=== PATIENT | male | born 1955 | race Two or more races ===

== ENCOUNTER 2019-11-04 21:01 | Emergency (ER) | payer OTHER ==
[~2019-11-04] VITALS: Ht 180.3 cm; Wt 77.6 kg
[2019-11-04 21:57] LABS: Basophils # (auto) 0 uL; Basophils % (auto) 0.8 % (0.0-2.0); Eosinophils # (auto) 0.1 uL; Eosinophils % (auto) 2.5 % (0.0-7.0); Hematocrit 42.5 % (41.0-53.0); Hemoglobin 14.4 g/dL (13.5-17.5); Lymphocytes # (auto) 2.3 uL; Lymphocytes % (auto) 37.8 % (10.0-50.0); Mean Corpuscular Hemoglobin 28.7 pg (28.0-32.0); Mean Corpuscular Hgb Conc. 33.8 g/dL (32.0-36.0); Mean Corpuscular Volume 84.8 fL (80.0-100.0); Monocytes # (auto) 0.5 uL; Monocytes % (auto) 8.7 % (0.0-12.0); Neutrophils % (auto) 50.2 % (37.0-80.0); Platelet Count (auto) 199 10^3/uL (140-450); Red Blood Cells 5.02 10^6/uL (4.5-5.90); Red Cell Distribution Width 13.9 % (11.8-14.3)
[2019-11-04 22:11] LABS: INR 1.02 (0.9-1.15); Partial Thromboplastin Time 27.7 sec (23.64-32.05)
[2019-11-04 22:16] LABS: Albumin 3.5 g/dL (3.4-5.0); Calcium 8.3 mg/dL (8.5-10.1); Magnesium 1.9 mg/dL (1.6-2.6); Potassium 3.6 mmol/L (3.5-5.1)
[2019-11-04 22:19] LABS: Bilirubin, Total 0.4 mg/dL (0.2-1.0); Total Protein 7.9 g/dL (6.4-8.2)
[2019-11-05] MEDS ORDERED: DexAMETHasone SOD PHOS 10MG/1ML VIAL INJ IV ONE
[2019-11-05 00:29] LABS: Urine Bacteria NONE SEEN /hpf (None Seen); Urine Blood TRACE /uL (Negative); Urine Specific Gravity 1.019 (1.001-1.035); Urine WBC <1 /hpf (0 - 3)
[2019-11-05 00:57] VITALS: BP 151/89
== END 2019-11-04 23:19 | disposition short-term general hospital (02) ==
LOC: ER 21:06
DX: I63.9 Cerebral infarction, unspecified (principal); G51.0 Bell's palsy
CPT/HCPCS: 36415; 70450; 71046; 80053; 81001; 83735; 84443; 85025; 85610; 85730; 93005

== ENCOUNTER 2025-05-08 09:46 | Emergency (ER) | payer OTHER ==
[~2025-05-08] VITALS: Ht 180.3 cm; Wt 78.7 kg
[2025-05-08 09:50] VITALS: BP 157/78; PULSE 64; RESP 17; TEMP 97.7; O2SAT 97
--- NOTE | 2025-05-08 10:20 | ED.PDOC ---
Back pain HPI HPI Comments 70 M presents to the ER w/ prior MHx of CVA x5yrs, Unspecified Heart Arrhythmia and the c/c of lower back pain. Pt reports on having a sudden onset of right lumbosacral para spinal muscle of the back since wednesday night of 05/04/25 after getting out of work. 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 Pt states that the pain worsens when changing positions from sitting to standing. Tried OTC IBU with improvement Denies history of chronic steroid use or history of osteoporosis Denies history of cancer Denies fevers chills night sweats nausea vomiting unintentional weight loss Denies abdominal tearing pain Denies syncope Denies urinary changes or urinary incontinence Denies numbness tingling of the groin her inner thigh Denies previous back procedures or surgeries Chief Complaint: Back Pain Time Seen by MD: 10:00 Primary Care Provider: none Reviewed Notes: Nurses Notes, Medications, Allergies Allergies: Coded Allergies: NO KNOWN ALLERGIES (Unverified , 02/18/13) Home Meds Active Scripts Tizanidine Hydrochloride (TIZANIDINE HCL) 2 Mg Cap, 2 MG PO Q12HP PRN for 14 Days, #28 CAP 0 Refills Prov:MIKAYLA MACIAS NP 05/08/25 Information Source: Patient Timing: Days Duration: Since onset, Days Location of Back pain: (R) Lower back Severity: Moderate Prehospital treatment: None Quality: Aching Onset: Spontaneous History of: None Associated signs and symptoms: None Past Medical History PAST MEDICAL HISTORY: CVA Past Medical History (Other): unspecified heart arrhythmia Surgical History: Denies all surgeries Family History Family History: Reviewed,noncontributory to illness, Unknown, Family hx of heart maya Social History Smoker: Non-Smoker Alcohol: Rarely Drugs: Denies Drug Use Lives In: Home Constitutional: denies: chills, diaphoresis, fatigue, fever, malaise, sweats, weakness, others EENTM: denies: blurred vision, double vision, ear bleeding, ear discharge, ear drainage, ear pain, ear ringing, eye pain, eye redness, hearing loss, mouth pain, mouth swelling, nasal discharge, nose bleeding, nose congestion, nose pain, photophobia, tearing, throat pain, throat swelling, voice changes, others Respiratory: denies: cough, hemoptysis, orthopnea, SOB at rest, shortness of breath, SOB with excertion, stridor, wheezing, others Cardiovascular: denies: chest pain, dizzy spells, diaphoresis, Dyspnea on exertion, edema, irregular heart beat, left arm pain, lightheadedness, palpitations, PND, syncope, others Gastrointestinal: denies: abdomen distended, abdominal pain, blood streaked bowels, constipated, diarrhea, dysphagia, difficulty swallowing, hematemesis, me randolph, nausea, poor appetite, poor fluid intake, rectal bleeding, rectal pain, vomiting, others Genitourinary: denies: burning, dysuria, flank pain, frequency, hematuria, incontinence, penile discharge, penile sore, pain, testicle pain, testicle swelling, urgency, others Neurological: denies: dizziness, fainting, headache, left sided numbness, left sided weakness, numbness, paresthesia, pre-existing deficit, right sided numbness, right sided weakness, seizure, speech problems, tingling, tremors, weakness, others Musculoskeletal: reports: back pain; denies: gout, joint pain, joint swelling, muscle pain, muscle stiffness, neck pain, others Integumetry: denies: bruises, change in color, change in hair/nails, dryness, laceration, lesions, lumps, rash, wounds, others Allergic/Immunocompromised: denies: Difficulty Healing, Frequent Infections, Hives, Itching, others Hematologic/Lymphatic: denies: anemia, blood clots, easy bleeding, easy bruising, swollen glands, others Endocrine: denies: excessive hunger, excessive sweating, excessive thirst, excessive urination, flushing, intolerance to cold, intolerance to heat, unexplained weight gain, unexplained weight loss, others Psychiatric: denies: anxiety, bipolar disorder, depression, hopeless, panic disorder, schizophrenia, sleepless, suicidal, others All Other Systems: Reviewed and Negative Physical Exam General Appearance: No Apparent Distress, Normal HEENT: Normal ENT Inspection, Pharynx Normal, TMs Normal Neck: Full Range of Motion, Non-Tender, Normal, Normal Inspection Respiratory: Chest Non-Tender, Lungs Clear, No Accessory Muscle Use, No Respiratory Distress, Normal Breath Sounds Cardiovascular: No Murmur, No Gallop, Regular Rate/Rhythm Breast Exam: Deferred Gastrointestinal: No Organomegaly, Non Tender, No Pulsatile Mass, Normal Bowel Sounds, Soft Genitalia: Deferred Pelvic: Deferred Rectal: Deferred Extremities: No calf tenderness, Normal capillary refill, Normal inspection, Normal range of motion, Non-tender, No pedal edema Musculoskeletal : Location: Right Extremity Location: Back (right lumbosacral para spinal muscle) Apperance: Normal, Tenderness: Moderate Neurologic: Alert, shipping checker II-XII nml as Tested, No Motor Deficits, Normal Affect, Normal Mood, No Sensory Deficits Cerebellar Function: Normal Reflexes: Normal Skin: Dry, Normal Color, Warm Lymphatic: No Adenopathy Was a procedure done? Was a procedure done?: No Back Pain Differential Dx Differential Diagnosis: Musculoskeletal Pain, Urinary Tract Infection, Other X-Ray, Labs, Meds, VS Vital Signs Date Time Temp Pulse Resp B/P (MAP) Pulse Ox O2 Delivery O2 Flow Rate FiO2 05/08/25 09:50 64 17 97 Room Air* 0 21 05/08/25 09:50 97.7 64 17 157/78 (104) 97 97.7 05/08/25 09:50 97.7 64 17 157/78 (104) 97 97.7 Lab Test 05/08/25 10:16 05/08/25 10:00 Range/Units White Blood Count 6.1 4.4-10.8 10^3/uL Red Blood Count 5.27 4.5-5.90 10^6/uL Hemoglobin 15.7 13.5-17.5 g/dL Hematocrit 43.2 41.0-53.0 % Mean Corpuscular Volume 82.0 80.0-100.0 fL Mean Corpuscular Hemoglobin 29.7 28.0-32.0 pg Mean Corpuscular Hemoglobin Concent 36.2 H 32.0-36.0 g/dL Red Cell Distribution Width 14.0 11.8-14.3 % Platelet Count 187 140-450 10^3/uL Mean Platelet Volume 8.4 6.9-10.8 fL Neutrophils (%) (Auto) 61.5 37.0-80.0 % Lymphocytes (%) (Auto) 25.3 10.0-50.0 % Monocytes (%) (Auto) 9.0 0.0-12.0 % Eosinophils (%) (Auto) 3.6 0.0-7.0 % Basophils (%) (Auto) 0.6 0.0-2.0 % Neutrophils # (Auto) 3.8 1.6-8.6 10 ^3/uL Lymphocytes # (Auto) 1.6 0.4-5.4 10 ^3/uL Monocytes # (Auto) 0.5 0-1.3 10 ^3/uL Eosinophils # (Auto) 0.2 0-0.8 10 ^3/uL Basophils # (Auto) 0 0-0.2 10 ^3/uL Nucleated Red Blood Cells 0.0 % Sodium Level 141 136-145 mmol/L Potassium Level 3.7 3.5-5.1 mmol/L Chloride Level 105 98-107 mmol/L Carbon Dioxide Level 28 20-31 mmol/L Anion Gap 8 5-15 Blood Urea Nitrogen 15 9-23 mg/dL Creatinine 0.87 0.700-1.30 mg/dL Glomerular Filtration Rate Calc 93 >90 mL/min BUN/Creatinine Ratio 17.2 10.0-20.0 Serum Glucose 94 74-106 mg/dL Calcium Level 9.3 8.7-10.4 mg/dL Urine Color Light-yellow Yellow Urine Clarity Clear Clear Urine pH 5.5 5.0-9.0 Urine Specific [place] 1.020 1.001-1.035 Urine Protein Negative Negative Urine Ketones Negative Negative Urine Blood Trace H Negative /uL Urine Nitrite Negative Negative Urine Bilirubin Negative Negative Urine Urobilinogen Normal Negative mg/dL Urine Leukocyte Esterase Negative Negative /uL Urine RBC 3 0 - 3 /hpf Urine Microscopic WBC < 1 0-3 /HPF Urine Squamous Epithelial Cells None seen <5 /hpf Urine Bacteria None seen None Seen /hpf Urine Glucose Normal Normal mg/dL X-Ray, Labs, Meds, VS Comment 70M presents to the ER w/ prior MHx of CVA x5yrs, Unspecified Heart Arrhythmia and the c/c of lower back pain. Patient arrives alert and oriented, ABC's intact, afebrile, vital signs stable, saturating well in room air CBC was ordered to exclude anemia, blood loss, or infection. BMP was ordered to exclude electrolyte abnormalities, renal failure, dehydration, hyperglycemia Urinalysis was ordered to rule out UTI or hematuria. I considered cauda equina, spinal cord compression, vertebral malignancy/mets, acute spinal fracture, vertebral osteomyelitis, epidural abscess, infected or obstructed kidney stone, however this is less likely as the patient does not present with lower back pain red flags symptoms such as bowel or bladder dysfunction, saddle anesthesia, paresthesia, and without any history of malignancy or recent back trauma or spinal interventions. Presentation most consistent with nonemergent musculoskeletal etiology versus nonemergent disc herniation. ED workup: Defer imaging and lab work for outpatient follow up at this time Disposition: Discharge. Strict return precautions discussed with the patient with full understanding. Supportive care advised (rest, ice, heat, NSAIDs, stretching exercises) Massage muscles with cold pack or ice for 20 minutes 4 times per day. Usually most useful if there is swelling during the first 48 hours Heating pad on the most painful area for 20 minutes to relieve muscle spasm Sleep and the most comfortable sleeping position (usually on the side with knees bent) Light stretching, no strenuous activity, avoid frequent bending, avoid carrying heavy objects Discussed possible benefits of yoga and acupuncture Return precautions discussed including: Inability to walk/bear weight Paresthesia/weakness/leg pain Fecal/urinary incontinence Any worsening symptoms On reevaluation, patient had symptomatic improvement. Patient is stable for discharge at this time. External notes reviewed. Test results and diagnostic imaging interpreted. All diagnostic findings, discharge care, education and instructions provided Follow-up with PCP in 2 to 3 days Patient verbalized understanding and agreed to treatment plan Vital signs stable, afebrile, no acute distress noted Patient ambulatory with strong steady gait Advised to return precautions for any new or worsening symptoms, return to ER immediately for re-evaluation Patient is aware that the purpose of this visit was for an acute medical emergency requiring emergent stabilization. Chronic conditions, including malignancies have not been ruled out. Patient is instructed to follow up with PCP as directed and discharge instructions for continued care and workup. If unable to arrange follow-up, patient is to return to the emergency department for reassessment. Patient (parent or legal guardian if applicable) was given verbal and written discharge instructions and acknowledges understanding. Additional MDM Review of External, Non-ED records: External records reviewed. Discussion with independent historian (EMS, family) history obtained from the patient/parents (if applicable) at bedside Chronic conditions affecting care: None Social determinants of health affecting care: None Consideration of admission (observation or admission): I considered escalation of care to admission for this patient, however given the reassuring workup, the patient is safe for outpatient management. Discussion with the Radiology: No Tests considered but not performed: Considered plain films such as lumbar x-ray however imaging as symptoms have been present for less than four weeks and there is no indication for acute trauma no injury. Patient did not have any midline TTP and there was no bony step-offs on palpation Prescription medication considered but not given: Time of 1ST Reevaluation: 10:30 Reevaluation 1ST: Unchanged Patient Education/Counseling: Diagnosis, Treatment, Prognosis Family Education/Counseling: No Family Present SEPSIS Sepsis Screen Vital Signs Date Time Temp Pulse Resp B/P (MAP) Pulse Ox O2 Delivery O2 Flow Rate FiO2 05/08/25 09:50 64 17 97 Room Air* 0 21 05/08/25 09:50 97.7 64 17 157/78 (104) 97 97.7 05/08/25 09:50 97.7 64 17 157/78 (104) 97 97.7 Laboratory Tests Test 05/08/25 10:16 White Blood Count 6.1 10^3/uL (4.4-10.8) Departure 1 Departure Time of Disposition: 11:33 Impression: Primary Impression: Back strain Qualified Codes: S39.012A - Strain of muscle, fascia and tendon of lower back, initial encounter Disposition: HOME / SELF CARE / HOMELESS Condition: Stable e-Prescriptions Tizanidine Hydrochloride (TIZANIDINE HCL) 2 Mg Cap 2 MG PO Q12HP PRN for 14 Days, #28 CAP 0 Refills Prov: MIKAYLA MACIAS NP 05/08/25 Critical Care Note Critical Care Time?: No Stability Stability form required: No Heart Score Heart Score: Heart Score Response (Comments) Value History N/A 0 EKG N/A 0 Age N/A 0 Risk Factors N/A 0 Troponin N/A 0 Total 0 I personally scribed for MIKAYLA MACIAS NP ([email or web address]) on 05/08/25 at 10:20. Electronically submitted by Jerrod Aragon ([email or web address]). MIKAYLA MACIAS NP May 08, 2025 10:20
[2025-05-08 10:24] LABS: Urine Protein, UAD Negative (Negative)
[2025-05-08 10:37] LABS: Hematocrit 43.2 % (41.0-53.0); Hemoglobin 15.7 g/dL (13.5-17.5); Mean Corpuscular Hemoglobin 29.7 pg (28.0-32.0); Mean Corpuscular Volume 82.0 fL (80.0-100.0); Nucleated Red Blood Cells % 0.0 %
[2025-05-08 10:41] LABS: Chloride 105 mmol/L (98-107); Potassium 3.7 mmol/L (3.5-5.1); Sodium 141 mmol/L (136-145)
[2025-05-08 10:42] LABS: Anion Gap 8 (5-15); Carbon Dioxide 28 mmol/L (20-31)
[2025-05-08 10:43] LABS: Calcium 9.3 mg/dL (8.7-10.4)
[2025-05-08 10:47] LABS: BUN/Creatinine Ratio 17.2 (10.0-20.0); Blood Urea Nitrogen 15 mg/dL (9-23); Glucose 94 mg/dL (74-106)
[2025-05-08] MEDS ORDERED: TIZA2CAP7 PO (11:35)
== END 2025-05-08 11:45 | disposition home or self-care (01) ==
LOC: ER 09:46
DX: S39.012A Strain of muscle, fascia and tendon of lower back, initial encounter (principal); F10.90 Alcohol use, unspecified, uncomplicated; Z86.73 Personal history of transient ischemic attack (TIA), and cerebral infarction without residual deficits; Z79.899 Other long term (current) drug therapy; X50.0XXA Overexertion from strenuous movement or load, initial encounter; Y93.89 Activity, other specified; Y92.89 Other specified places as the place of occurrence of the external cause; Y99.0 Civilian activity done for income or pay; Y90.9 Presence of alcohol in blood, level not specified
CPT/HCPCS: 36415; 80048; 81001; 85025

== ENCOUNTER 2025-05-10 09:17 | Inpatient (IN) | payer OTHER ==
[~2025-05-10] VITALS: Ht 180.3 cm; Wt 80.0 kg
[~2025-05-10 09:17] MED LIST: TIZA2CAP7 PO
--- NOTE | 2025-05-10 09:32 | ED.PDOC ---
General HPI Comments This is a 70 year old male presenting to the ED with chief complaint of flank pain. Patient reports that he was seen 2 days ago for similar pain to his right flank, being prescribed muscle relaxant with no relief. Patient relays that his pain has worsened since then. Patient states that his pain is currently an 8/10. Patient notes he is unable to see his PCP until May. Patient denies any dysuria, hematuria, abdominal pain, fever, chills, or N/V/D. Chief Complaint: Flank Pain Time Seen by MD: 09:31 Primary Care Provider: KARSON Reviewed notes: Nurses Notes, Medications, Allergies Allergies: Coded Allergies: NO KNOWN ALLERGIES (Unverified , 02/18/13) Home Meds Active Scripts Tizanidine Hydrochloride (TIZANIDINE HCL) 2 Mg Cap, 2 MG PO Q12HP PRN for 14 Days, #28 CAP 0 Refills Prov:MIKAYLA MACIAS NP 05/08/25 Information Source: Patient Mode of Arrival: Ambulatory Severity: Moderate Timing: Days Duration: Since onset Prehospital treatment: None Onset: Spontaneous History of: None Location: (R) Flank Past Medical History PAST MEDICAL HISTORY: CVA Surgical History: Denies all surgeries Family History Family History: Reviewed,noncontributory to illness, Unknown, Family hx of heart maya Social History Smoker: Non-Smoker Alcohol: Rarely Drugs: Denies Drug Use Lives In: Home Constitutional: denies: chills, diaphoresis, fatigue, fever, malaise, sweats, weakness, others EENTM: denies: blurred vision, double vision, ear bleeding, ear discharge, ear drainage, ear pain, ear ringing, eye pain, eye redness, hearing loss, mouth pain, mouth swelling, nasal discharge, nose bleeding, nose congestion, nose pain, photophobia, tearing, throat pain, throat swelling, voice changes, others Respiratory: denies: cough, hemoptysis, orthopnea, SOB at rest, shortness of breath, SOB with excertion, stridor, wheezing, others Cardiovascular: denies: chest pain, dizzy spells, diaphoresis, Dyspnea on exertion, edema, irregular heart beat, left arm pain, lightheadedness, palpitations, PND, syncope, others Gastrointestinal: denies: abdomen distended, abdominal pain, blood streaked bowels, constipated, diarrhea, dysphagia, difficulty swallowing, hematemesis, melena, nausea, poor appetite, poor fluid intake, rectal bleeding, rectal pain, vomiting, others Genitourinary: reports: flank pain; denies: burning, dysuria, frequency, hemat uria, incontinence, penile discharge, penile sore, pain, testicle pain, testicle swelling, urgency, others Neurological: denies: dizziness, fainting, headache, left sided numbness, left sided weakness, numbness, paresthesia, pre-existing deficit, right sided numbness, right sided weakness, seizure, speech problems, tingling, tremors, weakness, others Musculoskeletal: denies: back pain, gout, joint pain, joint swelling, muscle pain, muscle stiffness, neck pain, others Integumetry: denies: bruises, change in color, change in hair/nails, dryness, laceration, lesions, lumps, rash, wounds, others Allergic/Immunocompromised: denies: Difficulty Healing, Frequent Infections, Hives, Itching, others Hematologic/Lymphatic: denies: anemia, blood clots, easy bleeding, easy bruising, swollen glands, others Endocrine: denies: excessive hunger, excessive sweating, excessive thirst, excessive urination, flushing, intolerance to cold, intolerance to heat, unexplained weight gain, unexplained weight loss, others Psychiatric: denies: anxiety, bipolar disorder, depression, hopeless, panic disorder, schizophrenia, sleepless, suicidal, others All Other Systems: Reviewed and Negative Physical Exam General Appearance: Moderate Distress, Normal HEENT: Normal ENT Inspection, Pharynx Normal, TMs Normal Neck: Full Range of Motion, Non-Tender, Normal, Normal Inspection Respiratory: Chest Non-Tender, Lungs Clear, No Accessory Muscle Use, No Respiratory Distress, Normal Breath Sounds Cardiovascular: No Edema, No JVD, No Murmur, No Gallop, Normal Peripheral Pulses, Regular Rate/Rhythm Breast Exam: Deferred Gastrointestinal: No Organomegaly, Non Tender, No Pulsatile Mass, Normal Bowel Sounds, Soft Genitalia: Deferred Pelvic: Deferred Rectal: Deferred Extremities: No calf tenderness, Normal capillary refill, Normal inspection, Normal range of motion, Non-tender, No pedal edema Musculoskeletal : Apperance: Normal 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 Was a procedure done?: No Differential Diagnosis Kidney stone (Female): Musculoskeletal pain, Urinary obstruction, Urolithiasis Kidney stone (Male): Urolithiasis, Urinary tract infection, Other (Musc uloskeletal pain) X-Ray, Labs, Meds, VS Vital Signs Date Time Temp Pulse Resp B/P (MAP) Pulse Ox O2 Delivery O2 Flow Rate FiO2 05/10/25 16:00 97.8 56 16 114/52 (72) 95 97.8 05/10/25 13:05 Room Air* 0 21 05/10/25 13:05 98.1 52 16 136/70 (92) 95 98.1 05/10/25 12:38 70 18 97 Room Air* 0 21 05/10/25 09:52 98.1 62 18 158/71 (100) 96 98.1 05/10/25 09:52 62 18 96 Room Air 05/10/25 09:25 97.7 67 17 159/94 (115) 99 97.7 Lab Test 05/10/25 09:41 05/10/25 09:24 Range/Units White Blood Count 6.4 4.4-10.8 10^3/uL Red Blood Count 5.24 4.5-5.90 10^6/uL Hemoglobin 15.0 13.5-17.5 g/dL Hematocrit 42.8 41.0-53.0 % Mean Corpuscular Volume 81.7 80.0-100.0 fL Mean Corpuscular Hemoglobin 28.6 28.0-32.0 pg Mean Corpuscular Hemoglobin Concent 35.0 32.0-36.0 g/dL Red Cell Distribution Width 14.0 11.8-14.3 % Platelet Count 190 140-450 10^3/uL Mean Platelet Volume 8.3 6.9-10.8 fL Neutrophils (%) (Auto) 63.8 37.0-80.0 % Lymphocytes (%) (Auto) 24.5 10.0-50.0 % Monocytes (%) (Auto) 7.7 0.0-12.0 % Eosinophils (%) (Auto) 3.2 0.0-7.0 % Basophils (%) (Auto) 0.8 0.0-2.0 % Neutrophils # (Auto) 4.1 1.6-8.6 10 ^3/uL Lymphocytes # (Auto) 1.6 0.4-5.4 10 ^3/uL Monocytes # (Auto) 0.5 0-1.3 10 ^3/uL Eosinophils # (Auto) 0.2 0-0.8 10 ^3/uL Basophils # (Auto) 0.1 0-0.2 10 ^3/uL Nucleated Red Blood Cells 0.0 % Sodium Level 140 136-145 mmol/L Potassium Level 3.9 3.5-5.1 mmol/L Chloride Level 106 98-107 mmol/L Carbon Dioxide Level 29 20-31 mmol/L Anion Gap 5 5-15 Blood Urea Nitrogen 12 9-23 mg/dL Creatinine 0.87 0.700-1.30 mg/dL Glomerular Filtration Rate Calc 93 >90 mL/min BUN/Creatinine Ratio 13.8 10.0-20.0 Serum Glucose 100 74-106 mg/dL Hemoglobin A1c Pending Calcium Level 9.6 8.7-10.4 mg/dL Urine Color Light-yellow Yellow Urine Clarity Clear Clear Urine pH 5.5 5.0-9.0 Urine Specific [place] 1.014 1.001-1.035 Urine Protein Negative Negative Urine Ketones Negative Negative Urine Blood Trace H Negative /uL Urine Nitrite Negative Negative Urine Bilirubin Negative Negative Urine Urobilinogen Normal Negative mg/dL Urine Leukocyte Esterase Negative Negative /uL Urine RBC 1 0 - 3 /hpf Urine Microscopic WBC 1 0-3 /HPF Urine Squamous Epithelial Cells None seen <5 /hpf Urine Bacteria None seen None Seen /hpf Urine Glucose Normal Normal mg/dL Current Medications Medications (Trade) Dose Ordered Sig/Lion Route Start Time Stop Time Status Last Admin Sodium Chloride 1,000 ml @ 1,000 mls/hr Q1H ONCE IV 05/10/25 09:30 05/10/25 10:29 DC 05/10/25 09:57 Ketorolac Tromethamine (Toradol Injection) 30 mg ONCE ONCE IV 05/10/25 09:30 05/10/25 09:31 DC 05/10/25 10:01 CT Abd/Pel: FINDINGS: Lung bases: Lung bases are clear. Liver: Grossly unremarkable in its noncontrast enhanced appearance. No abnormal density or focal lesion identified. Biliary: No calcified gallstones or biliary ductal dilatation. Spleen: Unremarkable. Pancreas: Grossly unremarkable in its noncontrast enhanced appearance. Adrenal glands: Unremarkable. No mass. Kidneys: No hydronephrosis. No renal or ureteral calculi. Aorta/Vascular: No aneurysm or significant calcification. Retroperitoneum: No mass or lymphadenopathy. Bowel/mesentery: Nonspecific nondilated fluid-filled small bowel loops. Findings may be seen with ileus or enteritis in the appropriate clinical setting. No small bowel obstruction. Appendix is visualized and appears unremarkable. There is increased density in the central mesentery with multiple small subcentimeter mesenteric lymph nodes, may be seen with mesenteric panniculitis. Scattered colonic diverticula without adjacent inflammatory changes to suggest diverticulitis. Pelvic organs: Prostate is enlarged, with mild impression on the bladder base. Coarse central calcifications in the prostate gland. Bladder: Grossly unremarkable. Abdominal wall: Small fat containing direct left inguinal hernia. Bones: No acute fracture or suspicious intraosseous lesion. Mild grade 1 anterolisthesis of L4 on L5. IMPRESSION: 1. No hydronephrosis and no renal or ureteral calculi. 2. 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 3. Scattered colonic diverticula without adjacent inflammatory changes to suggest diverticulitis. 4. Small fat containing left inguinal hernia. 5. Additional findings as described above. Patient alert pain Complaining of flank pain. CT of the abdomen reviewed does show painnculitis. Vitals stable. Answering questions. Continues to have pain. Was given pain medication. Explained to the patient that he will be admitted for pain control. Continue monitoring. Images Reviewed?: Images reviewed and evaluated by me Time of 1ST Reevaluation: 10:29 Reevaluation 1ST: Unchanged Patient Education/Counseling: Diagnosis, Treatment Family Education/Counseling: No Family Present Additional Information Previous visits reviewed: 05/08/25 for back strain The following tests were ordered, and results were reviewed by me: UA, CBC, BMP, CT Abd/Pel Additional Information was gathered from interviewing the following independent historians: None I reviewed and agreed with the following test results read by other providers: CT Abd/Pel I discussed treatment and results with medical personnel and: patient Comprehensive systems review obtained and negative except for what is stated in the HPI. SEPSIS Sepsis Screen Date sepsis recognized/suspect: May 10, 2025 Time Sepsis recognized/suspect: 925 Recent Procedure: No On Antibiotic Therapy: No Respiratory Rate >20: No Heart Rate >90: No Temp<36 C (96.8 F) or >38.3 C: No SBP <90 or MAP <65 mmHG: No New Acute Mental Status Change: No Is the patient on CPAP, BIPAP,: No Physician Orders Ct Ab Pel Wo Con-No Oral Or Iv (05/10/25 09:30) Saline Lock (05/10/25 09:34) Lumbar Spine 3 View (05/10/25 16:00) Vital Signs Date Time Temp Pulse Resp B/P (MAP) Pulse Ox O2 Delivery O2 Flow Rate FiO2 05/10/25 16:00 97.8 56 16 114/52 (72) 95 97.8 05/10/25 13:05 Room Air* 0 21 05/10/25 13:05 98.1 52 16 136/70 (92) 95 98.1 05/10/25 12:38 70 18 97 Room Air* 0 21 05/10/25 09:52 98.1 62 18 158/71 (100) 96 98.1 05/10/25 09:52 62 18 96 Room Air 05/10/25 09:25 97.7 67 17 159/94 (115) 99 97.7 Laboratory Tests Test 05/10/25 09:41 White Blood Count 6.4 10^3/uL (4.4-10.8) Medications Medications Dose Ordered Sig/Lion Route Start Time Stop Time Status Last Admin Dose Admin Ketorolac Tromethamine 30 mg ONCE ONCE IV 05/10/25 09:30 05/10/25 09:31 DC 05/10/25 10:01 Sodium Chloride 1,000 ml @ 1,000 mls/hr Q1H ONCE IV 05/10/25 09:30 05/10/25 10:29 DC 05/10/25 09:57 Departure 1 Departure Time of Disposition: 17:54 Impression: Primary Impression: Acute abdominal pain Additional Impression: Panniculitis Disposition: ADMITTED INPATIENT Admit to: Med Surg Condition: Guarded Critical Care Note Critical Care Time?: No Stability Stability form required: No Heart Score Heart Score: Heart Score Response (Comments) Value History N/A 0 EKG N/A 0 Age N/A 0 Risk Factors N/A 0 Troponin N/A 0 Total 0 I personally scribed for JULIETTE CARVALHO MD ([email or web address]) on 05/10/25 at 09:32. Electronically submitted by Luc Parisi ([email or web address]). I personally scribed for JULIETTE CARVALHO MD ([email or web address]) on 05/10/25 at 10:45. Electronically submitted by Luc Parisi ([email or web address]). JULIETTE CARVALHO MD May 10, 2025 09:32
[2025-05-10] MEDS: SODIUM CHLORIDE 0.9% 1,000 ML IV ONE (09:57)
[2025-05-10] MEDS: KETOROLAC TROMETH 30 MG/ML 1ML VIAL IV ONE (10:01)
[2025-05-10 10:04] LABS: Hematocrit 42.8 % (41.0-53.0); Hemoglobin 15.0 g/dL (13.5-17.5); Mean Corpuscular Hemoglobin 28.6 pg (28.0-32.0); Mean Corpuscular Volume 81.7 fL (80.0-100.0); Nucleated Red Blood Cells % 0.0 %
[2025-05-10 10:10] LABS: Anion Gap 5 (5-15); Carbon Dioxide 29 mmol/L (20-31); Chloride 106 mmol/L (98-107); Potassium 3.9 mmol/L (3.5-5.1); Sodium 140 mmol/L (136-145)
[2025-05-10 10:11] LABS: Calcium 9.6 mg/dL (8.7-10.4)
[2025-05-10 10:16] LABS: BUN/Creatinine Ratio 13.8 (10.0-20.0); Blood Urea Nitrogen 12 mg/dL (9-23); Glucose 100 mg/dL (74-106)
[2025-05-10 10:16] LABS: Urine Protein, UAD Negative (Negative)
--- NOTE | 2025-05-10 10:20 | DVH ---
CLINICAL INFORMATION: Renal stone. Abdominal pain. TECHNIQUE: Axial CT images of the abdomen and pelvis were obtained without IV contrast. Coronal and s agittal reformatted images were obtained, reviewed, and stored. Evaluation of the parenchymal organs is limited without IV contrast. Evaluation of the bowel and mesentery is limited without oral contras t. All CT scans at this medical facility are performed using dose modulation techniques as appropriat e to a performed exam including the following: Automated exposure control was utilized; adjustment of the MA and/or KV according to patient size; and use of iterative reconstruction technique. CTDIvol = 7.78 mGy DLP = 475.24 mGy-cm COMPARISON: None FINDINGS: Lung bases: Lung bases are clear. Liver: Grossly unremarkable in its noncontrast enhanced appearance. No abnormal density or focal lesi on identified. Biliary: No calcified gallstones or biliary ductal dilatation. Spleen: Unremarkable. Pancreas: Grossly unremarkable in its noncontrast enhanced appearance. Adrenal glands: Unremarkable. No mass. Kidneys: No hydronephrosis. No renal or ureteral calculi. Aorta/Vascular: No aneurysm or significant calcification. Retroperitoneum: No mass or lymphadenopathy. Bowel/mesentery: Nonspecific nondilated fluid-filled small bowel loops. Findings may be seen with ile us or enteritis in the appropriate clinical setting. No small bowel obstruction. Appendix is visualiz ed and appears unremarkable. There is increased density in the central mesentery with multiple small subcentimeter mesenteric lymph nodes, may be seen with mesenteric panniculitis. Scattered colonic di verticula without adjacent inflammatory changes to suggest diverticulitis. Pelvic organs: Prostate is enlarged, with mild impression on the bladder base. Coarse central calcifi cations in the prostate gland. Bladder: Grossly unremarkable. Abdominal wall: Small fat containing direct left inguinal hernia. Bones: No acute fracture or suspicious intraosseous lesion. Mild grade 1 anterolisthesis of L4 on L5. IMPRESSION: 1. No hydronephrosis and no renal or ureteral calculi. 2. 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 3. Scattered colonic diverticula without adjacent inflammatory changes to suggest diverticulitis. 4. Small fat containing left inguinal hernia. 5. Additional findings as described above.
[2025-05-10 12:38] VITALS: PULSE 70; RESP 18; O2SAT 97
[2025-05-10] MEDS ORDERED: ONDANSETRON HCL 4 MG/2 ML VIAL IV PRN (16:15)
[2025-05-10] MEDS ORDERED: ACETAMINOPHEN 325 MG TAB PO PRN (16:15)
[2025-05-10] MEDS ORDERED: MORPHINE SULFATE INJ 2 MG/ml SYRG IV PRN (16:15)
--- NOTE | 2025-05-10 16:16 | DVHHP2 ---
History of Present Illness Reason for Visit: Intractable right flank pain History of Present Illness Omari Bingham is a 70-year-old male with past medical history of CVA with no weakness, palpitations, PSVT, and right brain tumor in 2019 who presents to the ED with right flank pain radiating to his left lower quadrant of the abdomen. Patient states that there is only discomfort currently 4/10 pressure-like and constant. He states that medications make it better. His Anat and [id number] is currently at the bedside. Patient also endorses that he drinks daily 2 L of Coca-Cola. Patient reports that there are no triggering factors to his pain. 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 He states that he does not use a back brace for support. 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 Past Medical History PSVT Palpitations Right brain tumor in 2019 patient reports Past Surgical History: None Family History: None Smoke: No ALCOHOL: none Drugs: None Lives: with Family Domestic Violence: Neg Review of Systems Gastrointestinal: Abdominal Pain Musculoskeletal: other (Intractable right flank pain radiating to his left lower quadrant of abdomen) Allergies: Coded Allergies: NO KNOWN ALLERGIES (Unverified , 02/18/13) Exam Vital Signs Vital Signs Date Time Temp Pulse Resp B/P (MAP) Pulse Ox O2 Delivery O2 Flow Rate FiO2 05/10/25 13:05 Room Air* 0 21 05/10/25 13:05 98.1 52 16 136/70 (92) 95 98.1 General Appearance: Alert, Oriented X3, Cooperative, No acute distress HEENT: Atraumatic, PERRLA, EOMI, Mucous membr. moist/pink Respiratory: Clear to auscultation, Normal air movement Cardiovascular: Normal S1, Normal S2 Abdominal: Normal bowel sounds, Soft Extremities: No clubbing, No cyanosis, No edema, Normal pulses, No tenderness/swelling Skin: No significant lesion Neuro: Normal speech, Strength at 5/5 X4 ext, Normal tone, Sensation intact Psych/Mental Status: Mental status NL, Mood NL Labs/Xrays Labs Test 05/10/25 09:41 05/10/25 09:24 Range/Units White Blood Count 6.4 4.4-10.8 10^3/uL Red Blood Count 5.24 4.5-5.90 10^6/uL Hemoglobin 15.0 13.5-17.5 g/dL Hematocrit 42.8 41.0-53.0 % Mean Corpuscular Volume 81.7 80.0-100.0 fL Mean Corpuscular Hemoglobin 28.6 28.0-32.0 pg Mean Corpuscular Hemoglobin Concent 35.0 32.0-36.0 g/dL Red Cell Distribution Width 14.0 11.8-14.3 % Platelet Count 190 140-450 10^3/uL Mean Platelet Volume 8.3 6.9-10.8 fL Neutrophils (%) (Auto) 63.8 37.0-80.0 % Lymphocytes (%) (Auto) 24.5 10.0-50.0 % Monocytes (%) (Auto) 7.7 0.0-12.0 % Eosinophils (%) (Auto) 3.2 0.0-7.0 % Basophils (%) (Auto) 0.8 0.0-2.0 % Neutrophils # (Auto) 4.1 1.6-8.6 10 ^3/uL Lymphocytes # (Auto) 1.6 0.4-5.4 10 ^3/uL Monocytes # (Auto) 0.5 0-1.3 10 ^3/uL Eosinophils # (Auto) 0.2 0-0.8 10 ^3/uL Basophils # (Auto) 0.1 0-0.2 10 ^3/uL Nucleated Red Blood Cells 0.0 % Sodium Level 140 136-145 mmol/L Potassium Level 3.9 3.5-5.1 mmol/L Chloride Level 106 98-107 mmol/L Carbon Dioxide Level 29 20-31 mmol/L Anion Gap 5 5-15 Blood Urea Nitrogen 12 9-23 mg/dL Creatinine 0.87 0.700-1.30 mg/dL Glomerular Filtration Rate Calc 93 >90 mL/min BUN/Creatinine Ratio 13.8 10.0-20.0 Serum Glucose 100 74-106 mg/dL Calcium Level 9.6 8.7-10.4 mg/dL Urine Color Light-yellow Yellow Urine Clarity Clear Clear Urine pH 5.5 5.0-9.0 Urine Specific [place] 1.014 1.001-1.035 Urine Protein Negative Negative Urine Ketones Negative Negative Urine Blood Trace H Negative /uL Urine Nitrite Negative Negative Urine Bilirubin Negative Negative Urine Urobilinogen Normal Negative mg/dL Urine Leukocyte Esterase Negative Negative /uL Urine RBC 1 0 - 3 /hpf Urine Microscopic WBC 1 0-3 /HPF Urine Squamous Epithelial Cells None seen <5 /hpf Urine Bacteria None seen None Seen /hpf Urine Glucose Normal Normal mg/dL CLINICAL INFORMATION: Renal stone. Abdominal pain. TECHNIQUE: Axial CT images of the abdomen and pelvis were obtained without IV contrast. Coronal and sagittal reformatted images were obtained, reviewed, and stored. Evaluation of the parenchymal organs is limited without IV contrast. Evaluation of the bowel and mesentery is limited without oral contrast. All CT scans at this medical facility are performed using dose modulation techniques as appropriate to a performed exam including the following: Automated exposure control was utilized; adjustment of the MA and/or KV according to patient size; and use of iterative reconstruction technique. CTDIvol = 7.78 mGy DLP = 475.24 mGy-cm COMPARISON: None FINDINGS: Lung bases: Lung bases are clear. Liver: Grossly unremarkable in its noncontrast enhanced appearance. No abnormal density or focal lesion identified. Biliary: No calcified gallstones or biliary ductal dilatation. Spleen: Unremarkable. Pancreas: Grossly unremarkable in its noncontrast enhanced appearance. Adrenal glands: Unremarkable. No mass. Kidneys: No hydronephrosis. No renal or ureteral calculi. Aorta/Vascular: No aneurysm or significant calcification. Retroperitoneum: No mass or lymphadenopathy. Bowel/mesentery: Nonspecific nondilated fluid-filled small bowel loops. Findings may be seen with ileus or enteritis in the appropriate clinical setting. No small bowel obstruction. Appendix is visualized and appears unremarkable. There is increased density in the central mesentery with multiple small subcentimeter mesenteric lymph nodes, may be seen with mesenteric panniculitis. Scattered colonic diverticula without adjacent inflammatory changes to suggest diverticulitis. Pelvic organs: Prostate is enlarged, with mild impression on the bladder base. Coarse central calcifications in the prostate gland. Bladder: Grossly unremarkable. Abdominal wall: Small fat containing direct left inguinal hernia. Bones: No acute fracture or suspicious intraosseous lesion. Mild grade 1 anterolisthesis of L4 on L5. IMPRESSION: 1. No hydronephrosis and no renal or ureteral calculi. 2. 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 3. Scattered colonic diverticula without adjacent inflammatory changes to suggest diverticulitis. 4. Small fat containing left inguinal hernia. CLINICAL INDICATION: back pain TECHNIQUE: 2 radiographic views of the lumbar spine were obtained. Comparison: None FINDINGS/IMPRESSION: There is anterior wedge deformity of T12 of unknown chronicity, likely chronic. MRI would be helpful to determine chronicity. Multilevel lsyg-he-uinfaltr degenerative changes of the lower thoracic and lumbar spine. Small amount of fecal material within the visualized colon. SEPSIS Sepsis Screen Date sepsis recognized/suspect: May 10, 2025 Time Sepsis recognized/suspect: 925 Recent Procedure: No On Antibiotic Therapy: No Respiratory Rate >20: No Heart Rate >90: No Temp<36 C (96.8 F) or >38.3 C: No SBP <90 or MAP <65 mmHG: No New Acute Mental Status Change: No Is the patient on CPAP, BIPAP,: No Physician Orders Ct Ab Pel Wo Con-No Oral Or Iv (05/10/25 09:30) Saline Lock (05/10/25 09:34) Lumbar Spine 3 View (05/10/25 16:00) Admit (05/10/25 16:02) Allergies (05/10/25 16:02) Code Status (05/10/25 16:02) 0.9% Ns 1000 Ml (05/10/25 16:15) Hydrocodone-Acet 5/325mg Tab ([place] 5/32 (05/10/25 16:15) Ondansetron Hcl (Zofran) (05/10/25 16:15) Complete Blood Count (05/11/25 04:00) Comprehensive Metabolic Panel (05/11/25 04:00) Npo (Nothing By Mouth) Diet (05/10/25 Dinner) Acetaminophen Tablet (Tylenol Tablet) (05/10/25 16:15) Morphine Sulfate Injection (05/10/25 16:15) Sequential Compression Device (05/10/25 ) Zosyn Extended Infusion (05/10/25 22:00) Vital Signs Date Time Temp Pulse Resp B/P (MAP) Pulse Ox O2 Delivery O2 Flow Rate FiO2 05/10/25 13:05 Room Air* 0 21 05/10/25 13:05 98.1 52 16 136/70 (92) 95 98.1 05/10/25 12:38 70 18 97 Room Air* 0 21 05/10/25 09:52 98.1 62 18 158/71 (100) 96 98.1 05/10/25 09:52 62 18 96 Room Air 05/10/25 09:25 97.7 67 17 159/94 (115) 99 97.7 Laboratory Tests Test 05/10/25 09:41 White Blood Count 6.4 10^3/uL (4.4-10.8) Medications Medications Dose Ordered Sig/Lion Route Start Time Stop Time Status Last Admin Dose Admin Ketorolac Tromethamine 30 mg ONCE ONCE IV 05/10/25 09:30 05/10/25 09:31 DC 05/10/25 10:01 30 MG Sodium Chloride 1,000 ml @ 1,000 mls/hr Q1H ONCE IV 05/10/25 09:30 05/10/25 10:29 DC 05/10/25 09:57 1,000 MLS/HR Assessment/Plan Assessment/Plan Assessment Intractable right flank pain radiating to left lower quadrant of abdomen likely due to diverticulitis versus mesenteric panniculitis Anterior wedge deformity of T12 on imaging Left inguinal hernia History of palpitations History of PSVT ? Possible history of right brain tumor in 2019 per patient reports History of CVA with no weakness reported Plan Admit to med surge Antiemetics Pain management IV antibiotics-Zosyn UA NS [address] abdomen and pelvis noted Last echo on 02/19/2013 EF 47% X-ray lumbar spine MRI lumbar spine ordered IV fluids NPO Per patient he does not take any home medications DVT prophylaxis-not indicated patient ambulating PUD prophylaxis-not indicated no history of GERD or GI bleed Discussed plan of care with patient, spouse, patient's [id number], and nurse [id number] Preventive counseling healthy eating habits, physical activity, and regular checkups Plan discussed with: Patient, Spouse, Daughter My Orders Orders - JAY JAY 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 Procedure Category Date Status Time Lumbar Spine 3 View XY 05/10/25 Logged 16:00 Admit ADMIT 05/10/25 Transmitted 16:02 Allergies TIEN 05/10/25 Transmitted 16:02 Code Status CODE 05/10/25 Transmitted 16:02 0.9% Ns 1000 Ml PHA 05/10/25 Transmitted 16:15 Hydrocodone-Acet PHA 05/10/25 Transmitted 5/325mg Tab ([place] 16:15 Ondansetron Hcl PHA 05/10/25 Transmitted (Zofran) 16:15 Complete Blood Count LAB 05/11/25 Verified 04:00 Comprehensive LAB 05/11/25 Verified Metabolic Panel 04:00 Npo (Nothing By DIET 05/10/25 Transmitted Mouth) Diet Dinner Acetaminophen Tablet PHA 05/10/25 Transmitted (Tylenol Tablet) 16:15 Morphine Sulfate PHA 05/10/25 Transmitted Injection 16:15 Sequential TIEN 05/10/25 Transmitted Compression Device Zosyn Extended PHA 05/10/25 Transmitted Infusion 22:00 Date of Service: May 10, 2025 Billing Provider: JAY JAY MERCADO Common Visit Codes: 14932-[id number] INP/OBS CARE (HIGH) Secondary Visit Codes: [id number] COUNSELING IND JAY JAY MERCADO May 10, 2025 16:16
[2025-05-10] MEDS: SODIUM CHLORIDE 0.9% 1,000 ML IV SCH (16:26)
--- NOTE | 2025-05-10 16:37 | DVH ---
CLINICAL INDICATION: back pain TECHNIQUE: 2 radiographic views of the lumbar spine were obtained. Comparison: None FINDINGS/IMPRESSION: There is anterior wedge deformity of T12 of unknown chronicity, likely chronic. MRI would be helpful to determine chronicity. Multilevel ogbx-uj-dmzmjvua degenerative changes of the lower thoracic and l umbar spine. Small amount of fecal material within the visualized colon.
[2025-05-10 17:00] VITALS: BP 138/68; PULSE 54; RESP 18; TEMP 97.5; O2SAT 98
[2025-05-10] MEDS: POLYETHYLENE GLYCOL 17 GM PWDR PO SCH (17:00)
[2025-05-10 17:47] VITALS: BP 138/68; PULSE 54; RESP 18; TEMP 97.5; O2SAT 95
[2025-05-10 20:00] VITALS: PULSE 64; RESP 16; O2SAT 96
[2025-05-10 21:00] VITALS: BP 139/81; PULSE 48; RESP 16; TEMP 98; O2SAT 97
[2025-05-10] MEDS ORDERED: PIPERACILLIN-TAZOB 3.375GM 100 ML IV SCH (22:00)
[2025-05-10] MEDS: SENNA 8.6 MG TAB PO SCH (22:23)
[2025-05-10] MEDS: PIPERACILLIN-TAZOB 3.375GM 100 ML IV SCH (22:23)
[2025-05-11] VITALS (8 sets, daily range): BP systolic 122–137; BP diastolic 63–84; PULSE 55–71; RESP 16–18; TEMP 97.4–98.3; O2SAT 96–98
[2025-05-11 06:45] LABS: Hematocrit 41.1 % (41.0-53.0); Hemoglobin 14.3 g/dL (13.5-17.5); Mean Corpuscular Hemoglobin 28.7 pg (28.0-32.0); Mean Corpuscular Volume 82.3 fL (80.0-100.0); Nucleated Red Blood Cells % 0.0 %
[2025-05-11 06:52] LABS: Alanine Aminotransferase 25 U/L (7-40); Alkaline Phosphatase 61 U/L (46-116)
[2025-05-11 06:53] LABS: Albumin 3.7 g/dL (3.2-4.8); Anion Gap 8 (5-15); BUN/Creatinine Ratio 13.8 (10.0-20.0); Bilirubin, Total 0.9 mg/dL (0.2-1.0); Blood Urea Nitrogen 12 mg/dL (9-23); Calcium 8.7 mg/dL (8.7-10.4); Carbon Dioxide 26 mmol/L (20-31); Chloride 108 mmol/L (98-107); Glucose 97 mg/dL (74-106); Potassium 3.9 mmol/L (3.5-5.1); Sodium 142 mmol/L (136-145); Total Protein 6.4 g/dL (5.7-8.2)
--- NOTE | 2025-05-11 10:40 | DVH ---
PROCEDURE: MRI LUMBAR SPINE WO CONTRAST INDICATION: anterior wedge deformity of T12 of unknown chronicity Exam Date: 05/11/2025 08:41 AM COMPARISON: None TECHNIQUE: MRI lumbar spine without intravenous contrast. FINDINGS: Grade 1 anterolisthesis of L4 on L5. Mild chronic loss of vertebral body height T12. No acute corrie dolores fracture. There are degenerative endplate changes including modic endplate changes with anterio r and lateral osteophytes throughout the lumbar spine. The visualized distal spinal cord and conus me dullaris are within normal limits. The conus medullaris appears to terminate within normal limits. The visualized retroperitoneal and paraspinal soft tissues are unremarkable. The following axial levels are detailed below: T12-L1: There is a mild circumferential disc bulge. No significant central canal or neuroforaminal s tenosis. L1-L2: Unremarkable. L2-L3: There is a moderate circumferential disc bulge complicated by facet arthropathy associated w ith mild to moderate bilateral neuroforaminal stenosis. No significant central canal stenosis. L3-L4: There is a moderate circumferential disc bulge complicated by facet arthropathy associated w ith mild to moderate bilateral neuroforaminal stenosis. No significant central canal stenosis. L4-L5: There is a moderate circumferential disc bulge complicated by facet arthropathy associated w ith mild to moderate bilateral neuroforaminal stenosis. No significant central canal stenosis. L5-S1: There is a moderate circumferential disc bulge complicated by facet arthropathy associated wi th mild to moderate left neuroforaminal stenosis. No significant central canal stenosis. IMPRESSION: 1. Multilevel degenerative disease. Grade 1 anterolisthesis of L4 on L5. No significant central canal stenosis. Neural foraminal stenosis as above. Mild chronic loss of vertebral body height T12. No ac charlie compression fracture. HS:Y
--- NOTE | 2025-05-11 12:16 | DVHPN2 ---
Subjective The patient seen and examined at bedside. Complains of parvin pain. Reviewed: Care Plan, H&P, Labs, Medications, Previous Orders, Radiology Changes from previous H/P or p: No Changes Gastrointestinal: Abdominal Pain Musculoskeletal: other (Intractable right flank pain radiating to his left lower quadrant of abdomen) Objective Vitals Vital Signs Date Time Temp Pulse Resp B/P (MAP) Pulse Ox O2 Delivery O2 Flow Rate FiO2 05/11/25 09:43 98.3 55 17 133/75 (94) 97 98.3 05/11/25 08:00 Room Air* 0 21 Intake/Output Intake and Output 05/11/25 07:00 Intake Total 1000 ml Balance 1000 ml Intake IV Total 1000 ml # Voids 3 # Bowel Movements 1 General Appearance: Alert, Oriented X3, Cooperative, No acute distress HEENT: Atraumatic, PERRLA, EOMI, Mucous membr. moist/pink Neck: Supple Cardiovascular: Regular rate, Normal S1, Normal S2, No murmurs, Gallops, Rubs Abdomen: Normal bowel sounds, Soft, No tenderness Neuro: Cranial nerves 3-12 NL Psych/Mental Status: Mental status NL Medications Current Medications Medications Dose Ordered Sig/Lion Route Start Time Stop Time Status Last Admin Dose Admin Sodium Chloride 1,000 ml @ 120 mls/hr Q8H20M IV 05/10/25 16:15 05/11/25 08:55 120 MLS/HR Acetaminophen/ Hydrocodone Bitart 1 tab Q4HP PRN PO 05/10/25 16:15 Ondansetron HCl 4 mg Q4HP PRN IV 05/10/25 16:15 Acetaminophen 650 mg Q6HP PRN PO 05/10/25 16:15 Morphine Sulfate 2 mg Q4HPRN PRN IV 05/10/25 16:15 Piperacillin Sod/ Tazobactam Sod 100 ml @ 25 mls/hr Q8HR IV 05/10/25 22:00 05/11/25 05:12 25 MLS/HR Piperacillin Sod/ Tazobactam Sod 100 ml @ 25 mls/hr Q8HR IV 05/10/25 22:00 UNV Polyethylene Glycol 17 gm DAILY PO 05/10/25 17:00 Sennosides 8.6 mg HS PO 05/10/25 22:00 05/10/25 22:23 8.6 MG Laboratory Results MRI lumbar: 1. Multilevel degenerative disease. Grade 1 anterolisthesis of L4 on L5. No significant central canal stenosis. Neural foraminal stenosis as above. Mild chronic loss of vertebral body height T12. No acute compression fracture. XRay lumbar: There is anterior wedge deformity of T12 of unknown chronicity, likely chronic. MRI would be helpful to determine chronicity. Multilevel bhng-vr-oeqjofhb degenerative changes of the lower thoracic and lumbar spine. Small amount of fecal material within the visualized colon. CT abdomen and pelvis: 1. No hydronephrosis and no renal or ureteral calculi. 2. 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 3. Scattered colonic diverticula without adjacent inflammatory changes to suggest diverticulitis. 4. Small fat containing left inguinal hernia. 5. Additional findings as described above. Laboratory Tests 05/11/25 05:58 Chemistry Test 05/11/25 05:58 Albumin 3.7 g/dL (3.2-4.8) Calcium Level 8.7 mg/dL (8.7-10.4) Total Protein 6.4 g/dL (5.7-8.2) LFT Test 05/11/25 05:58 Alanine Aminotransferase (ALT) 25 U/L (7-40) Alkaline Phosphatase 61 U/L (46-116) Aspartate Amino Transferase (AST) 24 U/L (13-40) Total Bilirubin 0.9 mg/dL (0.2-1.0) Urinalysis Test 05/10/25 09:24 Urine Color Light-yellow (Yellow) Urine Clarity Clear (Clear) Urine pH 5.5 (5.0-9.0) Urine Specific [place] 1.014 (1.001-1.035) Urine Protein Negative (Negative) Urine Ketones Negative (Negative) Urine Blood Trace /uL (Negative) H Urine Nitrite Negative (Negative) Urine Bilirubin Negative (Negative) Urine Urobilinogen Normal mg/dL (Negative) Urine Leukocyte Esterase Negative /uL (Negative) Urine RBC 1 /hpf (0 - 3) Urine Microscopic WBC 1 /HPF (0-3) Urine Squamous Epithelial Cells None seen /hpf (<5) Urine Bacteria None seen /hpf (None Seen) Urine Glucose Normal mg/dL (Normal) Labs and/or images reviewed: Labs reviewed by me, Image(s) reviewed by me Assessment/Plan Assessment/Plan Intractable right flank pain radiating to left lower quadrant of abdomen likely due to diverticulitis versus mesenteric panniculitis Anterior wedge deformity of T12 on imaging Left inguinal hernia History of palpitations History of PSVT ? Possible history of right brain tumor in 2019 per patient reports History of CVA with no weakness reported Continue current management. Will start diet to see if patient tolerate. Advice patient not carry heavy subject. 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 DW about the result of MRI with the anterior wedge deformity of T12, avoid carry heavy load. Discharge planning. Plan discussed with: Patient, Daughter Date of Service: May 11, 2025 Billing Provider: TANISHA JAVED MD Common Visit Codes: [id number] INP/OBS CARE(HIGH) TANISHA JAVED MD May 11, 2025 12:16
[2025-05-12 01:00] VITALS: BP 134/83; PULSE 55; RESP 18; TEMP 97.5; O2SAT 97
[2025-05-12 05:00] VITALS: BP 124/71; PULSE 55; RESP 18; TEMP 97.8; O2SAT 97
[2025-05-12 08:11] VITALS: RESP 18; O2SAT 97
[2025-05-12 09:00] VITALS: BP 122/62; PULSE 53; RESP 16; TEMP 98.2; O2SAT 97
[2025-05-12] MEDS: HYDROcodone-ACET 5/325MG TAB PO PRN (09:54)
--- NOTE | 2025-05-12 11:39 | DVHDS2 ---
Discharge Summary Date of Admission May 10, 2025 at 16:02 Date of Discharge: May 12, 2025 Admitting Diagnosis Intractable right flank pain radiating to left lower quadrant of abdomen likely due to diverticulitis versus mesenteric panniculitis Anterior wedge deformity of T12 on imaging Left inguinal hernia History of palpitations History of PSVT ? Possible history of right brain tumor in 2019 per patient reports History of CVA with no weakness reported Labs/Diagnostic Data: Laboratory Results Test 05/11/25 05:58 05/10/25 09:41 05/10/25 09:24 White Blood Count 6.1 10^3/uL (4.4-10.8) Red Blood Count 5.00 10^6/uL (4.5-5.90) Hemoglobin 14.3 g/dL (13.5-17.5) Hematocrit 41.1 % (41.0-53.0) Mean Corpuscular Volume 82.3 fL (80.0-100.0) Mean Corpuscular Hemoglobin 28.7 pg (28.0-32.0) Mean Corpuscular Hemoglobin Concent 34.8 g/dL (32.0-36.0) Red Cell Distribution Width 13.5 % (11.8-14.3) Platelet Count 181 10^3/uL (140-450) Mean Platelet Volume 8.5 fL (6.9-10.8) Neutrophils (%) (Auto) 67.0 % (37.0-80.0) Lymphocytes (%) (Auto) 21.0 % (10.0-50.0) Monocytes (%) (Auto) 7.6 % (0.0-12.0) Eosinophils (%) (Auto) 3.5 % (0.0-7.0) Basophils (%) (Auto) 0.9 % (0.0-2.0) Neutrophils # (Auto) 4.1 10 ^3/uL (1.6-8.6) Lymphocytes # (Auto) 1.3 10 ^3/uL (0.4-5.4) Monocytes # (Auto) 0.5 10 ^3/uL (0-1.3) Eosinophils # (Auto) 0.2 10 ^3/uL (0-0.8) Basophils # (Auto) 0.1 10 ^3/uL (0-0.2) Nucleated Red Blood Cells 0.0 % Sodium Level 142 mmol/L (136-145) Potassium Level 3.9 mmol/L (3.5-5.1) Chloride Level 108 mmol/L (98-107) Carbon Dioxide Level 26 mmol/L (20-31) Anion Gap 8 (5-15) Blood Urea Nitrogen 12 mg/dL (9-23) Creatinine 0.87 mg/dL (0.700-1.30) Glomerular Filtration Rate Calc 93 mL/min (>90) BUN/Creatinine Ratio 13.8 (10.0-20.0) Serum Glucose 97 mg/dL (74-106) Calcium Level 8.7 mg/dL (8.7-10.4) Total Bilirubin 0.9 mg/dL (0.2-1.0) Aspartate Amino Transferase (AST) 24 U/L (13-40) Alanine Aminotransferase (ALT) 25 U/L (7-40) Alkaline Phosphatase 61 U/L (46-116) Total Protein 6.4 g/dL (5.7-8.2) Albumin 3.7 g/dL (3.2-4.8) Hemoglobin A1c 5.7 % A1C (<5.7) Urine Color Light-yellow (Yellow) Urine Clarity Clear (Clear) Urine pH 5.5 (5.0-9.0) Urine Specific [place] 1.014 (1.001-1.035) Urine Protein Negative (Negative) Urine Ketones Negative (Negative) Urine Blood Trace /uL (Negative) Urine Nitrite Negative (Negative) Urine Bilirubin Negative (Negative) Urine Urobilinogen Normal mg/dL (Negative) Urine Leukocyte Esterase Negative /uL (Negative) Urine RBC 1 /hpf (0 - 3) Urine Microscopic WBC 1 /HPF (0-3) Urine Squamous Epithelial Cells None seen /hpf (<5) Urine Bacteria None seen /hpf (None Seen) Urine Glucose Normal mg/dL (Normal) Other Laboratory Tests 05/11/25 05:58 Brief Hx & Hospital Course: This is a 70 years old male with past medical history of CVA with no weakness, heart palpitation, SVT, right brain tumor 2019 came to emergency department because of right flank pain radiates to his left lower quadrant of the abdomen. The patient said is constant so he decided to come to hospital for further evaluation. Patient reports that there are no triggering factors to his pain. 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 He had to lipid and see how it is. He states that he does not use a back brace for support. CT abdomen and pelvis showed: No hydronephrosis and no renal or ureteral calculi. 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 Scattered colonic diverticula without adjacent inflammatory changes to suggest diverticulitis. Small fat containing left inguinal hernia. Subsequently, he had a MRI T and L spine done which show: Grade 1 anterolisthesis of L4 on L5. Mild chronic loss of vertebral body height T12. No acute compression fracture. There are degenerative endplate changes including modic endplate changes with anterior and lateral osteophytes throughout the lumbar spine. The visualized distal spinal cord and conus medullaris are within normal limits. The conus medullaris appears to terminate within normal limits. The visualized retroperitoneal and paraspinal soft tissues are unremarkable.The following axial levels are detailed below:T12-L1: There is a mild circumferential disc bulge. No significant central canal or neuroforaminal stenosis. L1-L2: Unremarkable.L2-L3: There is a moderate circumferential disc bulge complicated by facet arthropathy associated with mild to moderate bilateral neuroforaminal stenosis. No significant central canal stenosis. L3-L4: There is a moderate circumferential disc bulge complicated by facet arthropathy associated with mild to moderate bilateral neuroforaminal stenosis. No significant central canal stenosis. L4-L5: There is a moderate circumferential disc bulge complicated by facet arthropathy associated with mild to moderate bilateral neuroforaminal stenosis. No significant central canal stenosis. L5-S1: There is a moderate circumferential disc bulge complicated by facet arthropathy associated with mild to moderate left neuroforaminal stenosis. No significant central canal stenosis. His pain is controlled. The patient also was started on IV antibiotic. I am going to discharge him home today. Advised him to work light without carry heavy objects. Advised him to have a colonoscopy done as outpatient. For up with primary care physician 1-2 weeks. Follow up with spine surgeon if he continuing to have pain. Physical exam: HEENT: Normocephalic atraumatic pupils equal react to light and accommodation. Extraocular muscles intact, conjunctiva pink, oropharynx moist, no thrush, no exudate. Lymphatic: No lymphadenopathy Cardiovascular exam: S1, S2 was heard. No murmurs, rubs, gallops Lung: Clear on auscultation bilaterally, no wheeze, rale, rhonchi. GI: Abdominal soft, nondistended, nontenderness, positive bowel sounds. Extremity: No crepitus, cyanosis, edema. Pedal pulses present bilateral. Full range of motion. Skin: Normal turgor, no rash. Psych: Alert, oriented x3. Neurology: No focal deficits, cranial nerve II to XII grossly intact. This medical document was created using an electronic medical record system with [employer] direct computerized dictation system. Although this document has been carefully reviewed, there may still be some phonetic and typographical errors. These areas are purely typographical due to imperfections of the software programs, and do not reflect any compromise in the patient's medical care. Condition at Discharge: Stable Final Diagnosis/Problems List Intractable right flank pain radiating to left lower quadrant of abdomen likely due to diverticulitis versus mesenteric panniculitis Anterior wedge deformity of T12 on imaging Left inguinal hernia History of palpitations History of PSVT ? Possible history of right brain tumor in 2019 per patient reports History of CVA with no weakness reported Discharge Disposition: Home Discharge Instruct/Medications Scheduled Amoxicillin & Pot Clavulanate (Augmentin Tablet), 875 MG PO BID Metronidazole (Flagyl), 1 TAB PO TID Scheduled PRN Hydrocodone-Acetaminophen (Hydrocodone Bitartrate/AC 5-325 mg), 1 TAB PO Q4HP PRN Tizanidine Hydrochloride (Tizanidine Hcl), 2 MG PO Q12HP PRN Discharge Statement: "Patient was advised to return to the ER or call 911 if any headaches, dizziness, shortness of breath, chest pain, abdominal pain, bleeding, fevers, or worsening of medical condition. Patient was counseled about treatment plan, medications, possible side effects, patientverbalized understanding. All questions were answered to the best of my ability. This discharge took greater then 30 minutes in planning, reviewing documentation, counseling the patient, and discussing with other team members." ASSESSMENT ASSESSMENT Assessment Date of Service: May 12, 2025 Billing Provider: TANISHA JAVED MD Common Visit Codes: 89105-KTZ/OBS DISCH DAY >30min TANISHA JAVED MD May 12, 2025 11:39
[2025-05-12] MEDS ORDERED: AUG875T PO (11:40)
[2025-05-12] MEDS ORDERED: METR-344 PO (11:40)
[2025-05-12] MEDS ORDERED: HYDR-4902 PO (11:40)
[2025-05-12 12:42] VITALS: TEMP 36.8
[2025-05-12 13:17] VITALS: BP 115/65; PULSE 59; RESP 16; TEMP 98.2; O2SAT 98
--- NOTE | 2025-05-12 15:44 | DVHPN2 ---
Subjective The patient seen and examined at bedside. Complains of parvin pain. Reviewed: Care Plan, H&P, Labs, Medications, Previous Orders, Radiology Gastrointestinal: Abdominal Pain Musculoskeletal: other (Intractable right flank pain radiating to his left lower quadrant of abdomen) Objective Vitals Vital Signs Date Time Temp Pulse Resp B/P (MAP) Pulse Ox O2 Delivery O2 Flow Rate FiO2 05/12/25 13:17 98.2 59 16 115/65 (82) 98 98.2 05/12/25 08:11 Room Air* 0 21 Intake/Output Intake and Output 05/12/25 07:00 Intake Total 2365 ml Balance 2365 ml Intake Oral 825 ml IV Total 1540 ml # Voids 3 # Bowel Movements 2 General Appearance: Alert, Oriented X3, Cooperative, No acute distress HEENT: Atraumatic, PERRLA, EOMI, Mucous membr. moist/pink Neck: Supple Cardiovascular: Regular rate, Normal S1, Normal S2, No murmurs, Gallops, Rubs Abdomen: Normal bowel sounds, Soft, No tenderness Neuro: Cranial nerves 3-12 NL Psych/Mental Status: Mental status NL Medications Current Medications Medications Dose Ordered Sig/Lion Route Start Time Stop Time Status Last Admin Dose Admin Sodium Chloride 1,000 ml @ 120 mls/hr Q8H20M IV 05/10/25 16:15 05/12/25 01:35 120 MLS/HR Acetaminophen/ Hydrocodone Bitart 1 tab Q4HP PRN PO 05/10/25 16:15 05/12/25 09:54 1 TAB Ondansetron HCl 4 mg Q4HP PRN IV 05/10/25 16:15 Acetaminophen 650 mg Q6HP PRN PO 05/10/25 16:15 Morphine Sulfate 2 mg Q4HPRN PRN IV 05/10/25 16:15 Piperacillin Sod/ Tazobactam Sod 100 ml @ 25 mls/hr Q8HR IV 05/10/25 22:00 05/12/25 05:36 25 MLS/HR Piperacillin Sod/ Tazobactam Sod 100 ml @ 25 mls/hr Q8HR IV 05/10/25 22:00 UNV Polyethylene Glycol 17 gm DAILY PO 05/10/25 17:00 Sennosides 8.6 mg HS PO 05/10/25 22:00 05/10/25 22:23 8.6 MG Laboratory Results Laboratory Tests 05/11/25 05:58 Urinalysis Test 05/10/25 09:24 Urine Color Light-yellow (Yellow) Urine Clarity Clear (Clear) Urine pH 5.5 (5.0-9.0) Urine Specific [place] 1.014 (1.001-1.035) Urine Protein Negative (Negative) Urine Ketones Negative (Negative) Urine Blood Trace /uL (Negative) H Urine Nitrite Negative (Negative) Urine Bilirubin Negative (Negative) Urine Urobilinogen Normal mg/dL (Negative) Urine Leukocyte Esterase Negative /uL (Negative) Urine RBC 1 /hpf (0 - 3) Urine Microscopic WBC 1 /HPF (0-3) Urine Squamous Epithelial Cells None seen /hpf (<5) Urine Bacteria None seen /hpf (None Seen) Urine Glucose Normal mg/dL (Normal) Assessment/Plan Assessment/Plan Continue current management. Will start diet to see if patient tolerate. Advice patient not carry heavy subject. 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 DW about the result of MRI with the anterior wedge deformity of T12, avoid carry heavy load. Discharge planning. My Orders Orders - TANISHA JAVED MD Procedure Category Date Status Time Discharge DISCHARGE 05/12/25 Transmitted 11:42 TANISHA JAVED MD May 12, 2025 15:43
== END 2025-05-12 16:45 | disposition home or self-care (01) | DRG 394 ==
LOC: ER 09:17 → OVERFLOW 16:02 → CENTRAL 17:22
PROVIDERS: ADMIT Internal Medicine; ATTEND Internal Medicine
DX: K65.4 Sclerosing mesenteritis (principal); K57.20 Diverticulitis of large intestine with perforation and abscess without bleeding; K40.90 Unilateral inguinal hernia, without obstruction or gangrene, not specified as recurrent; M43.8X4 Other specified deforming dorsopathies, thoracic region; Z79.899 Other long term (current) drug therapy; Z86.73 Personal history of transient ischemic attack (TIA), and cerebral infarction without residual deficits
CPT/HCPCS: 36415; 72100; 72148; 74176; 80048; 80053; 81001; 83036; 85025; 96361; 96365; 96375; G0378; J1885; J2543